=== PATIENT | female | born 1970 | race Caucasian/White ===

== ENCOUNTER 2018-07-05 15:58 | Emergency (ER) | payer SELFPAY ==
[~2018-07-05] VITALS: Ht 177.8 cm; Wt 90.0 kg
[~2018-07-05 15:58] MED LIST: ALBUTEROL S2.5 MG/.5 IN; ATENOLOL50 MG PO; BACTRIM DS1 TAB PO; BUSPAR5 MG PO; CITALOPRAM20 MG PO; CLONIDINE; CLONIDINE0.1 MG PO; COUMADIN7.5 MG PO; DILAUDID 2MG2 MG/TA1 PO; HYDROCHLOROT12.5 MG PO; K-DUR/KLOR-CON20 MEQ PO; LASIX 20 MG20 MG/TAB PO; LORTAB 10-325 M1 TAB PO; MEDDOSEPAK PO; METHADONE10 M1 PO; NORCO1 TAB PO; OXYCONTIN30 MG PO; PERCOCET 5/325M1 TAB PO; PERCOCET1 TA2 PO; SYNTHROID75 MCG PO; XANAX1 MG PO
[2018-07-05] MEDS ORDERED: ULTRAM50 M1 PO (18:15)
[2018-07-05] MEDS ORDERED: TORADOL PO (18:15)
[2018-07-05 19:11] VITALS: BP 147/99
== END 2018-07-05 19:11 | disposition home or self-care (01) | DRG 563 ==
LOC: ED 15:58
PROC: 0RSKXZZ Reposition Left Shoulder Joint, External Approach (ICD-10-PCS; principal; 2018-07-05)
PROC: 2W3BXYZ Immobilization of Left Upper Arm using Other Device (ICD-10-PCS; 2018-07-05)
DX: S43.015A Anterior dislocation of left humerus, initial encounter (principal); X58.XXXA Exposure to other specified factors, initial encounter; Y93.83 Activity, rough housing and horseplay; Y92.009 Unspecified place in unspecified non-institutional (private) residence as the place of occurrence of the external cause; M25.512 Pain in left shoulder; Z96.612 Presence of left artificial shoulder joint

== ENCOUNTER 2018-08-03 00:34 | Emergency (ER) | payer MEDICAID ==
[~2018-08-03] VITALS: Ht 177.8 cm; Wt 80.4 kg
[~2018-08-03 00:34] MED LIST changes: +TORADOL PO; +ULTRAM50 M1 PO
[2018-08-03] MEDS ORDERED: ULTRAM50 M1 PO (01:25)
[2018-08-03 01:35] VITALS: BP 152/82
[2018-08-03] MEDS ORDERED: NAPROSYN500 MG PO (04:35)
== END 2018-08-03 01:35 | disposition home or self-care (01) ==
LOC: ED 00:34
DX: S43.402A Unspecified sprain of left shoulder joint, initial encounter (principal); I10 Essential (primary) hypertension; F17.210 Nicotine dependence, cigarettes, uncomplicated; Y04.2XXA Assault by strike against or bumped into by another person, initial encounter; Y92.009 Unspecified place in unspecified non-institutional (private) residence as the place of occurrence of the external cause

== ENCOUNTER 2019-03-02 23:39 | Emergency (ER) | payer OTHER, MEDICAID ==
[~2019-03-02] VITALS: Ht 177.8 cm; Wt 82.0 kg
[~2019-03-02 23:39] MED LIST changes: +NAPROSYN500 MG PO
[2019-03-03 00:31] LABS: HEMATOCRIT 40.2 % (37.0-47.0); HEMOGLOBIN 13.6 g/dl (12.0-16.0); IMMATURE GRANULOCYTES 0.3 % (0.0-5.0); MEAN CORPUSCULAR HGB 29.4 pG CALC (26.0-32.0); MEAN CORPUSCULAR HGB CONC 33.8 g/L CALC (32.0-36.0); NEUT# 5.19 thou/uL (2.00-7.15); RED BLOOD COUNT 4.62 mill/uL (4.20-5.60); RED CELL DISTRI WIDTH 13.6 % (11.5-15.5)
[2019-03-03 00:44] LABS: ALBUMIN 4.2 g/dL (3.2-5.0); ALKALINE PHOSPHATASE 104 u/l (38-126); AMYLASE 36 u/l (30-110); ANION GAP 13 (6-22 (CALC)); BILIRUBIN, TOTAL 0.7 mg/dL (0.0-1.4); BUN 8 mg/dL (7-17); BUN/CREATININE RATIO 15 (12-20 (CALC)); CARBON DIOXIDE 27 mmol/l (22-30); CHLORIDE 103 mmol/l (95-108); CREATININE 0.5 mg/dL (0.5-1.0); ETHYL ALCOHOL 0 mg/dl (0-30); GFR > 60 ML/MIN (>=60 (CALC)); GFR FOR AFR.AMER. > 60 ML/MIN (>=60 (CALC)); LIPASE 21 u/l (23-300); POTASSIUM 3.2 mmol/l (3.5-5.1); SGOT/AST 27 u/l (14-36); SODIUM 139 mmol/l (137-146); TOTAL PROTEIN 7.3 g/dL (6.3-8.2)
[2019-03-03] MEDS ORDERED: TRAMADOL HYDROC50 MG PO (02:07)
[2019-03-03 02:42] VITALS: BP 168/88
== END 2019-03-03 02:42 | disposition home or self-care (01) | DRG 563 ==
LOC: ED 23:39
DX: S46.912A Strain of unspecified muscle, fascia and tendon at shoulder and upper arm level, left arm, initial encounter (principal); S20.211A Contusion of right front wall of thorax, initial encounter; S30.1XXA Contusion of abdominal wall, initial encounter; I10 Essential (primary) hypertension; F17.210 Nicotine dependence, cigarettes, uncomplicated; V43.52XA Car driver injured in collision with other type car in traffic accident, initial encounter

== ENCOUNTER 2020-11-11 22:08 | Emergency (ER) | payer OTHER ==
[~2020-11-11] VITALS: Ht 177.8 cm; Wt 78.0 kg
[~2020-11-11 22:08] MED LIST changes: +TRAMADOL HYDROC50 MG PO
[2020-11-11] MEDS ORDERED: LISINOPRIL20 MG PO (22:32)
[2020-11-11] MEDS ORDERED: EUTHYROX88 MCG PO (22:33)
[2020-11-11] MEDS ORDERED: BACTRIM DS1 TAB PO (23:50)
[2020-11-11] MEDS ORDERED: LORTAB 1010 MG PO (23:50)
[2020-11-12] VITALS: BP 168/92
== END 2020-11-12 | disposition home or self-care (01) ==
LOC: ED 22:08
DX: L02.11 Cutaneous abscess of neck (principal); I10 Essential (primary) hypertension; F17.200 Nicotine dependence, unspecified, uncomplicated; B95.62 Methicillin resistant Staphylococcus aureus infection as the cause of diseases classified elsewhere

== ENCOUNTER 2020-11-12 15:47 | Emergency (ER) | payer OTHER ==
[~2020-11-12] VITALS: Ht 177.8 cm; Wt 78.0 kg
[~2020-11-12 15:47] MED LIST changes: +EUTHYROX88 MCG PO; +LISINOPRIL20 MG PO; +LORTAB 1010 MG PO
[2020-11-12 16:25] VITALS: BP 140/89
== END 2020-11-12 16:25 | disposition home or self-care (01) ==
LOC: ED 15:47
DX: Z48.01 Encounter for change or removal of surgical wound dressing (principal); I10 Essential (primary) hypertension; F17.200 Nicotine dependence, unspecified, uncomplicated; Z86.718 Personal history of other venous thrombosis and embolism; Z91.048 Other nonmedicinal substance allergy status

== ENCOUNTER 2020-11-14 14:28 | Emergency (ER) | payer OTHER ==
[~2020-11-14] VITALS: Ht 177.8 cm; Wt 78.0 kg
[2020-11-14] MEDS ORDERED: CLEOCIN300 MG PO (16:35)
[2020-11-14 16:40] VITALS: BP 136/98
== END 2020-11-14 16:40 | disposition home or self-care (01) ==
LOC: ED 14:28
DX: Z48.01 Encounter for change or removal of surgical wound dressing (principal); I10 Essential (primary) hypertension; F17.210 Nicotine dependence, cigarettes, uncomplicated; F17.290 Nicotine dependence, other tobacco product, uncomplicated; Z86.718 Personal history of other venous thrombosis and embolism

== ENCOUNTER 2020-12-30 17:41 | Emergency (ER) | payer OTHER ==
[~2020-12-30 17:41] MED LIST changes: +CLEOCIN300 MG PO
== END 2020-12-30 20:00 | disposition home or self-care (01) | DRG 951 ==
LOC: ED 17:41 → LWOBS 19:51
DX: Z53.21 Procedure and treatment not carried out due to patient leaving prior to being seen by health care provider (principal)

== ENCOUNTER 2021-06-11 19:16 | Emergency (ER) | payer OTHER ==
[~2021-06-11] VITALS: Ht 177.8 cm; Wt 79.5 kg
[2021-06-11] MEDS ORDERED: ULTRAM50 MG PO (21:21)
[2021-06-11 21:25] VITALS: BP 144/79
== END 2021-06-11 21:33 | disposition home or self-care (01) ==
LOC: ED 19:16
DX: S93.401A Sprain of unspecified ligament of right ankle, initial encounter (principal); I10 Essential (primary) hypertension; F17.200 Nicotine dependence, unspecified, uncomplicated; W17.89XA Other fall from one level to another, initial encounter; Y93.I9 Activity, other involving external motion; Z86.718 Personal history of other venous thrombosis and embolism

== ENCOUNTER 2022-07-01 04:15 | Emergency (ER) | payer OTHER ==
[~2022-07-01] VITALS: Ht 177.8 cm; Wt 78.0 kg
[~2022-07-01 04:15] MED LIST changes: +ULTRAM50 MG PO
[2022-07-01 04:27] VITALS: BP 133/59
[2022-07-01 04:31] VITALS: BP 116/84
[2022-07-01] MEDS ORDERED: SYNTHROID150 MCG PO (04:51)
[2022-07-01] MEDS ORDERED: TRAMADOL HCL50 MG PO (06:02)
[2022-07-01 06:05] VITALS: BP 116/84
== END 2022-07-01 06:09 | disposition home or self-care (01) ==
LOC: ED 04:15
DX: S63.502A Unspecified sprain of left wrist, initial encounter (principal); S80.812A Abrasion, left lower leg, initial encounter; S80.12XA Contusion of left lower leg, initial encounter; I10 Essential (primary) hypertension; F17.200 Nicotine dependence, unspecified, uncomplicated; W01.198A Fall on same level from slipping, tripping and stumbling with subsequent striking against other object, initial encounter; Y92.007 Garden or yard of unspecified non-institutional (private) residence as the place of occurrence of the external cause; Z86.718 Personal history of other venous thrombosis and embolism

== ENCOUNTER 2023-02-08 14:29 | Emergency (ER) | payer OTHER ==
[~2023-02-08] VITALS: Ht 180.3 cm; Wt 80.2 kg
[~2023-02-08 14:29] MED LIST changes: +BACLOFEN10 MG PO; +NAPROXEN500 MG PO; +NEURONTIN100 MG PO; +PREDNISONE10 MG PO; +SYNTHROID150 MCG PO; +TRAMADOL HCL50 MG PO
[2023-02-08 14:38] VITALS: BP 166/135
[2023-02-08 14:45] VITALS: BP 187/120
[2023-02-08 14:57] VITALS: BP 143/83
[2023-02-08] MEDS ORDERED: LORTAB 1010 MG PO (14:57)
[2023-02-08 15:01] VITALS: BP 125/75
[2023-02-08 15:16] VITALS: BP 134/82
== END 2023-02-08 15:39 | disposition home or self-care (01) ==
LOC: ED 14:29
DX: M54.50 Low back pain, unspecified (principal); I10 Essential (primary) hypertension; F17.200 Nicotine dependence, unspecified, uncomplicated; Z86.718 Personal history of other venous thrombosis and embolism

== ENCOUNTER 2023-03-17 14:41 | Inpatient (IN) | payer OTHER ==
[~2023-03-17] VITALS: Ht 177.8 cm; Wt 73.0 kg
[~2023-03-17 14:41] MED LIST changes: +DOXY-CAPS100 MG PO; +LORTAB 5/3255 MG PO; +MOTRIN800 MG PO
[2023-03-17 14:59] VITALS: BP 129/98
--- NOTE | 2023-03-17 14:59 | NUR ---
PT ARRIVED TO UNIT WITH FAMILY A DIRECT ADMIT OF DR LYONS FOR A LEFT UPPER GLUTAL ABCESS. PT IS ALERT, ORIENTED, X3. ORIENTED PT TO ROOM, CALLBELL SYSTEM AND DISCUSSED PLAN FOR THE EVENING. IV ESTABLISHED 22 RIGHT FOOT. LEFT UPPER GLUTAL ABCESS DOES HAVE AN OPENING MEASURING 2.2CM, PHOTO IS IN CHART. PT BELONGINGS FORM IS IN CHART. REINFORCED FALL SAFTY PRECAUTIONS REINFORCED, CALL LIGHT WITHIN REACH, WILL CONTUINE TO MONITOR.
[2023-03-17 19:41] VITALS: BP 118/70
--- NOTE | 2023-03-17 20:32 | NUR ---
ASSESSMENT COMPLETE. PATIENT ALERT AND ORIENTED X3, PLEASANT. C/O COCCYX PAIN 8/10, DILAUDID ADMINISTERED. SMALL OPEN WOUND NOTED ON COCCYX, SURROUNDING SKIN WARM, INFLAMED, HARD. NO DRAINAGE NOTED, OPEN TO AIR. NO FURTHER CONCERNS EXPRESSED AT THIS TIME. PATIENT AWARE OF NPO STATUS AT MIDNIGHT. CALL LIGHT WITHIN REACH, INSTRUCTED TO CALL FOR ASSISTANCE.
[2023-03-18] VITALS (13 sets, daily range): BP systolic 100–158; BP diastolic 54–100
[2023-03-18 04:29] LABS: BASO% 0.4 % (0-3); EOS% 3.7 % (0-8); HEMATOCRIT 36.4 % (37.0-47.0); HEMOGLOBIN 11.9 g/dl (12.0-16.0); IMMATURE GRANULOCYTES 0.1 % (0.0-5.0); LYMPH% 32.3 % (15-41); MEAN CELL VOLUME 89.2 fL CALC (80.0-100.0); MEAN CORPUSCULAR HGB 29.2 pG CALC (26.0-32.0); MEAN CORPUSCULAR HGB CONC 32.7 g/dL CAL (32.0-36.0); MONO% 6.6 % (2-13); NEUT# 4.02 thou/uL (2.00-7.15); NEUT% 56.9 % (42-76); RED BLOOD COUNT 4.08 mill/uL (4.20-5.60)
[2023-03-18 04:49] LABS: ANION GAP 9 (6-22 (CALC)); BUN 11 mg/dL (7-17); BUN/CREATININE RATIO 20 (12-20 (CALC)); CARBON DIOXIDE 28 mmol/l (22-30); CHLORIDE 102 mmol/l (95-108); CREATININE 0.5 mg/dL (0.5-1.0); GFR FOR AFR.AMER. > 60 ML/MIN (>=60 (CALC)); GFR OTHER RACES > 60 ML/MIN (>=60 (CALC)); POTASSIUM 3.3 mmol/l (3.5-5.1); SODIUM 136 mmol/l (137-146)
--- NOTE | 2023-03-18 07:00 | NUR ---
RECEIVE REPORT FROM ANDIE. PT RESTING IN BED STABLE AT THIS TIME. SAFETY AND FALL PRECAUTIONS IN PLACE. CALL LIGHT WITHIN IN REACH. ROBYN MORIN FOR PT SATISFACTIONS AND FALL PRECAUTIONS.
--- NOTE | 2023-03-18 12:11 | NUR ---
PT IN OR.
--- NOTE | 2023-03-18 13:18 | NUR ---
PT COME BACK FROM OR. STABLE AT THIS TIME. REPORT FROM MIKHAIL OR NURSE. FOLLOW POST OP INSTRUCTIONS AND PROTOCOL.
--- NOTE | 2023-03-18 13:43 | NUR ---
ASSIGNED A WOUND VAC ULTA #[id number] TO THIS PATIENT VIA THE ONLINE PORTAL. .
--- NOTE | 2023-03-18 15:43 | NUR ---
NO CHANGES. PATIENT IS SLEEPING NON LABOR BREATHING. CALL LIGHT WITHIN REACH.
--- NOTE | 2023-03-18 20:00 | NUR ---
RECEIVED REPORT FROM NURSE STREETER, PATIENT RESTING IN BED, IV ON RT FOOT ONGOING LR AT 100CC/HR INFUSING WELL, NOT IN DISTRESS, C/O PAIN ON OPERATIVE SITE PRN DILAUDID GIVEN, PATINET WOUND VAC AT 125 SUCTION, CALL LIGHT IN REACH.
[2023-03-19] VITALS (11 sets, daily range): BP systolic 128–158; BP diastolic 66–89
--- NOTE | 2023-03-19 | NUR ---
DUE TORADOL GIVEN PATIENT NOT IN DISTRESS, WOUND VAC CHECKED FOR LEAK, CALL LIGHT IN REACH.
--- NOTE | 2023-03-19 04:58 | NUR ---
PATIENT RESTING IN BED, NOT IN DISTRESS, BREATHIUNG EVEN UNLABORED, NO DISCOMFORTS NOTED AT THIS TIME,CALL LIGHT IN REACH.
--- NOTE | 2023-03-19 08:42 | NUR ---
DR DILLON AT BEDSIDE
--- NOTE | 2023-03-19 08:49 | NUR ---
PT RESTING IN SEMI FOWLERS POSITION. PT A/OX3. RESPIRATIONS EVEN AND UNLABORED ON ROOM AIR. LUNG SOUNDS CLEAR. HEART RHYTHM NORMAL. BOWEL SOUNDS ACTIVE. #22G RIGHT FOOT INFUSING WITH IVF PER ORDER. WOUND VAC NOTED TO COCCYX, @125. DRESSING CDI. PT C/O OF 10 PAIN, TO BE MEDICATED PER EMAR. PT ORIENTED TO ROOM AND CALL LIGHT SYSTEM. ALL SAFETY PRECAUTIONS ARE IN PLACE WITH CALL LIGHT IN REACH.
--- NOTE | 2023-03-19 13:07 | NUR ---
PT SITTING UP IN BED. RESPIRATIONS EVEN AND UNLABORED ON ROOM AIR. WOUND VAC TO COCCYX AT 125, DRESSING CDI. #22G R FOOT INFUSING PER ORDER. PAIN 7/10, MEDICATED PER ORDER. PT DENIES OF ANY ADDITIONAL NEEDS. ALL SAFETY PERCAUTIONS ARE IN PLACE WITH CALL LIGHT IN REACH.
--- NOTE | 2023-03-19 14:46 | NUR ---
CALLED TO CHECK PICC LINE PLACEMENT TIME. TEST ENGINE EVALUATOR INFORMED THAT THE ORDER WAS FOR NURSING AND NOT RADIOLOGY. TEST ENGINE EVALUATOR INFORMED THAT RADIOLOGIST HAD LEFT FOR THE DAY. ATTEMPTED TO INFORM DR DILLON, NO ANSWER. VOICEMAIL LEFT.
--- NOTE | 2023-03-19 15:41 | NUR ---
PT RESTING IN SEMI FOWLERS POSITION. RESPIRATIONS EVEN AND UNLABORED ON ROOM AIR. #22G RIGHT FOOT PATENT. WOUND VAC TO COCCYX @125. PAIN MEDICATION TO BE ADMINISTERED. PT DENIES OF ANY NEEDS AT THIS TIME. ALL SAFETY PRECAUTIONS ARE IN PLACE WITH CALL LIGHT IN REACH.
--- NOTE | 2023-03-19 17:47 | NUR ---
WOUND VAC SUPPLIED DELIVERED AND PLACED AT BEDSIDE
--- NOTE | 2023-03-19 19:30 | NUR ---
IV ON RT FOOT INFILTRATED, IV CANULA REMOVED CATHETER INTACT.
--- NOTE | 2023-03-19 20:00 | NUR ---
RECEIVED REPOR FROM NURSE CHILDRESS,PATIENT C/O PAIN ON IV SITE, IV INFILTRATE, REMOVED CANNULA INTACT, NOTIFIED MD OF PATIENT IV INFILTATED ORDER TO REINSERT ANOTHER IV MAY PUT ON LOWER EXTREMITY, PATIENT S/P I&d GULTEAL MASS POST OP DAY 2, WOUNDVAC IN PLACE GOOD SEAL AT 125, CALL LIGHT IN REACH.
--- NOTE | 2023-03-19 21:20 | NUR ---
MD MADE AWARE UNABLE TO SECURE IV LINE ON FEET, ORDER TO HOLD VANCEF TONIGHT AND MAY GIVE IV DILAUDID IM,
--- NOTE | 2023-03-20 00:01 | NUR ---
ANTHONY AWAKE AT THIS TIME, PLAYING GAMES ON HER CELLPHONE, PATIENT NOT IN DISTTRESS, BREATHING EVEN UNLABORED,CALL LIGHT IN REACH.
[2023-03-20 03:43] VITALS: BP 164/98
--- NOTE | 2023-03-20 04:40 | NUR ---
PATIENT RESTING IN BED, EYES CLOSED, BREATHING EVEN AND UNLABORED, NO DISCOMFORTS NOTED AT THIS TIME, CALL LIGHT IN REACH.
[2023-03-20 04:41] VITALS: BP 164/98
[2023-03-20 06:35] VITALS: BP 147/86
--- NOTE | 2023-03-20 08:00 | NUR ---
REPORT RECEIVED FROM VINICIO LAZCANO. PT RESTING IN BED ON RIGHT SIDE WITH EYES CLOSED; AWAKENS SPONTANEOUSLY. ALERT AND ORIENTED X 3. C/O SEVERE PAIN TO SURGICAL SITE ON COCCYX. RESPIRATIONS EVEN AND UNLABORED ON ROOM AIR. #24 IV STARTED TO RIGHT FOOT AND IV DILAUDID ADMINISTERED PER DR. DILLON. WOUND VAC DRESSING CDI TO COCCYX WITH LESS THAN 100ML OF SANGUINOUS DRAINAGE. PLAN OF CARE DISCUSSED. PT ENCOURAGED TO VERBALIZE CONCERNS; STATES UNDERSTANDING. SAFETY MEASURES IN PLACE. CALL LIGHT WITHIN REACH.
[2023-03-20 08:47] VITALS: BP 147/86
--- NOTE | 2023-03-20 09:00 | NUR ---
DILAUDID EFFECTIVE. IV ANCEF INFUSING AT THIS TIME.
--- NOTE | 2023-03-20 09:30 | NUR ---
WOUND VAC DRESSING REPLACED AND HOME WOUND VAC ATTACHED AT [address] DILLON AT BEDSIDE TO DISCUSS DISCHARGE PLANS. PT REQUESTS PAIN MEDICATION PRIOR TO DISCHARGE; OK PER .
[2023-03-20] MEDS ORDERED: PERCOCET 5/321 COMBO PO (09:39)
[2023-03-20] MEDS ORDERED: BACTRIM DS1 TAB PO (09:41)
--- NOTE | 2023-03-20 10:20 | NUR ---
IV site discontinued, cath intact. No edema , no redness, voices no discomfort.
--- NOTE | 2023-03-20 10:34 | NUR ---
Discharge instructions given. Patient verbalizes understanding of same. Discharged in stable condition via Wheelchair to Home with family. All belongings sent with pt.
== END 2023-03-20 10:34 | DRG 572 ==
LOC: MS2 14:41
PROVIDERS: ADMIT Surgery; ATTEND Surgery
PROC: 0J990ZZ Drainage of Buttock Subcutaneous Tissue and Fascia, Open Approach (ICD-10-PCS; principal; 2023-03-18)
PROC: 0JB90ZZ Excision of Buttock Subcutaneous Tissue and Fascia, Open Approach (ICD-10-PCS; 2023-03-18)
DX: L02.31 Cutaneous abscess of buttock (principal); B95.61 Methicillin susceptible Staphylococcus aureus infection as the cause of diseases classified elsewhere; E89.0 Postprocedural hypothyroidism; Z86.718 Personal history of other venous thrombosis and embolism; Z85.3 Personal history of malignant neoplasm of breast; Z85.850 Personal history of malignant neoplasm of thyroid; Z90.13 Acquired absence of bilateral breasts and nipples; Z85.41 Personal history of malignant neoplasm of cervix uteri; Z20.822 Contact with and (suspected) exposure to COVID-19
CPT/HCPCS: J0131; J0690; J1650

== ENCOUNTER 2023-04-26 21:00 | Emergency (ER) | payer OTHER ==
[~2023-04-26] VITALS: Ht 177.8 cm; Wt 77.0 kg
[~2023-04-26 21:00] MED LIST changes: +KEFLEX500 MG PO; +PERCOCET 5/321 COMBO PO
[2023-04-26 21:18] VITALS: BP 163/102
[2023-04-26 22:00] VITALS: BP 166/106
[2023-04-26 22:23] VITALS: BP 166/106
== END 2023-04-26 22:23 | DRG 921 ==
LOC: ED 21:00
DX: L76.21 Postprocedural hemorrhage of skin and subcutaneous tissue following a dermatologic procedure (principal); Y83.8 Other surgical procedures as the cause of abnormal reaction of the patient, or of later complication, without mention of misadventure at the time of the procedure; I10 Essential (primary) hypertension; F17.200 Nicotine dependence, unspecified, uncomplicated